=== PATIENT | male | born 1940 | race Caucasian/White ===

== ENCOUNTER → 2017-11-03 08:59 | Outpatient (CLI) | payer MEDICARE, OTHER, SELFPAY ==
[2017-11-03 10:31] LABS: PSA,Total- Diagnostic 0.74 ng/mL (0.0-4.0)
== END ==
PROVIDERS: Family Provider Family Medicine; PCP Family Medicine; Visit Provider Nurse Practitioner Adult Health
DX: C61 Malignant neoplasm of prostate (principal)
CPT/HCPCS: 36415; 84153

== ENCOUNTER → 2021-05-04 05:00 | Outpatient (REF) | payer MEDICARE, OTHER, SELFPAY ==
[2021-05-04 07:31] LABS: INR Fingerstick 1.3; Prothrombin Time Fingerstick 15.4 SEC (11.9-14.4)
== END ==
LOC: OLS.ACH 05:00
PROVIDERS: PCP Family Medicine; Visit Provider Family Medicine
DX: Z79.01 Long term (current) use of anticoagulants (principal)
CPT/HCPCS: 36416; 85610

== ENCOUNTER → 2021-05-07 04:00 | Outpatient (REF) | payer MEDICARE, OTHER, SELFPAY ==
[2021-05-07 07:51] LABS: INR Fingerstick 1.4; Prothrombin Time Fingerstick 16.8 SEC (11.9-14.4)
== END ==
LOC: OLS.ACH 04:00
PROVIDERS: PCP Family Medicine; Visit Provider Family Medicine
DX: Z79.01 Long term (current) use of anticoagulants (principal)
CPT/HCPCS: 36416; 85610

== ENCOUNTER → 2021-05-10 04:00 | Outpatient (REF) | payer MEDICARE, OTHER, SELFPAY ==
[2021-05-10 07:16] LABS: INR Fingerstick 2.1; Prothrombin Time Fingerstick 23.7 SEC (11.9-14.4)
[2021-05-10 08:06] LABS: Prothrombin Time (Protime)PT. 21.7 SECONDS (11.7-14.9)
== END ==
LOC: OLS.ACH 04:00
PROVIDERS: PCP Family Medicine; Visit Provider Family Medicine
DX: Z79.01 Long term (current) use of anticoagulants (principal)
CPT/HCPCS: 36416; 85610

== ENCOUNTER → 2021-08-01 05:00 | Outpatient (REF) | payer MEDICARE, OTHER, SELFPAY ==
[2021-08-01 09:00] LABS: Absolute Neutrophil Count 4.3 X10^3/uL (2.0-7.7); Basophil# 0.08 X10^3/uL; Eosinophil# 0.29 X10^3/uL; Eosinophils% 3.5 % (0-5); Hematocrit 34.6 % (40-54); Hemoglobin 10.8 g/dL (13.0-16.5); Lymphocyte % 29.2 % (19-41); Mean Corp Hgb Conc 31.2 g/dL (32-36); Mean Corpuscular Hgb 27.2 pg (27.0-32.0); Mean Corpuscular Volume 87.2 fL (80-94); Monocyte# 1.06 X10^3/uL; Monocyte% 12.9 % (0-10); NRBC Flagged by Analyzer 0 % (0-5); Neutrophil # 4.34 X10^3/uL (2.7-7.7); Neutrophil % 52.8 % (47-70); Platelet Count 490 K/mm3 (150-450); RBC Distribution Width CV 14.8 % (11.6-14.6); RBC Distribution Width SD 47.3 fl (35.1-43.9); Red Blood Count 3.97 M/mm3 (4.6-6.2); White Blood Count 8.2 K/mm3 (4.4-11.0)
[2021-08-01 09:38] LABS: ALB/GLOB Ratio 0.5 RATIO (0.9-2.4); AST(SGOT) 16 U/L (15-37); Alanine Aminotransfer ALT/SGPT 21 U/L (16-61); Albumin, Serum 2.4 g/dL (3.2-5.0); Alkaline Phosphatase 84 U/L (45-117); Anion Gap 7 (5-15); BUN 15 mg/dL (7-18); BUN/Creat Ratio 17.8 RATIO (10-20); Calcium,Total 9.2 mg/dL (8.5-10.1); Chloride 103 mmol/L (98-107); Creatinine, Serum 0.84 mg/dL (0.70-1.30); EST Glomerular Filtration Rate 93 mL/min (>60); Est Glom Filt Rate - Afr Amer 112 mL/min (>60); Globulin 5.2 g/dL (2.2-4.2); Glucose 87 mg/dL (74-106); Protein, Total 7.6 g/dL (6.4-8.2); Sodium Level 139 mmol/L (136-145); Thyroid Stim Hormone (TSH) 2.38 uIU/mL (0.358-3.74)
== END ==
LOC: OLS.ACH 05:00
PROVIDERS: PCP Family Medicine; Visit Provider Family Medicine
DX: G91.2 (Idiopathic) normal pressure hydrocephalus (principal); R41.0 Disorientation, unspecified
CPT/HCPCS: 36415; 80053; 84443; 85025

== ENCOUNTER → 2021-09-24 04:00 | Outpatient (REF) | payer MEDICARE, OTHER, SELFPAY ==
[2021-09-24 06:25] LABS: Absolute Lymphocyte Count 2.81 X10^3/uL (0.83-4.51); Absolute Neutrophil Count 4.5 X10^3/uL (2.0-7.7); Basophil# 0.07 X10^3/uL; Basophil% 0.8 % (0-1); Eosinophil# 0.37 X10^3/uL; Eosinophils% 4.2 % (0-5); Hematocrit 35.4 % (40-54); Lymphocyte # 2.81 X10^3/ul (0.83-4.51); Lymphocyte % 31.6 % (19-41); Mean Corp Hgb Conc 31.1 g/dL (32-36); Mean Corpuscular Volume 86.8 fL (80-94); Mean Platelet Vol. 9.3 fl (6.2-12.0); Monocyte% 12.4 % (0-10); NRBC Flagged by Analyzer 0 % (0-5); Neutrophil # 4.52 X10^3/uL (2.7-7.7); Neutrophil % 50.7 % (47-70); Platelet Count 389 K/mm3 (150-450); RBC Distribution Width CV 16.5 % (11.6-14.6); RBC Distribution Width SD 52.7 fl (35.1-43.9); Red Blood Count 4.08 M/mm3 (4.6-6.2); White Blood Count 8.9 K/mm3 (4.4-11.0)
[2021-09-24 07:16] LABS: Anion Gap 6 (5-15); BUN 15 mg/dL (7-18); BUN/Creat Ratio 18.4 RATIO (10-20); Calcium,Total 9.1 mg/dL (8.5-10.1); Chloride 103 mmol/L (98-107); Creatinine, Serum 0.82 mg/dL (0.70-1.30); EST Glomerular Filtration Rate 96 mL/min (>60); Est Glom Filt Rate - Afr Amer 116 mL/min (>60); Ferritin 150 ng/mL (26-388); Glucose 83 mg/dL (74-106); Iron 53 ug/dL (65-175); Iron Binding Capacity,Total 259 ug/dL (250-450); Potassium 3.8 mmol/L (3.5-5.1); Sodium Level 138 mmol/L (136-145); Thyroid Stim Hormone (TSH) 1.93 uIU/mL (0.358-3.74)
[2021-09-24 08:50] LABS: Vitamin B12 416 pg/mL (211-911)
== END ==
LOC: OLS.ACH 04:00
PROVIDERS: PCP Family Medicine; Referring Provider Family Medicine; Visit Provider Family Medicine
DX: C61 Malignant neoplasm of prostate (principal); E78.2 Mixed hyperlipidemia; D64.9 Anemia, unspecified; G91.2 (Idiopathic) normal pressure hydrocephalus
CPT/HCPCS: 36415; 80048; 82607; 82728; 83540; 83550; 84443; 85025

== ENCOUNTER → 2021-11-21 | Outpatient (REF) | payer MEDICARE, OTHER, SELFPAY ==
[2021-11-21 07:04] LABS: Absolute Lymphocyte Count 2.62 X10^3/uL (0.83-4.51); Absolute Neutrophil Count 3.4 X10^3/uL (2.0-7.7); Basophil# 0.06 X10^3/uL; Basophil% 0.8 % (0-1); Eosinophils% 3.9 % (0-5); Hematocrit 35.8 % (40-54); Hemoglobin 11.6 g/dL (13.0-16.5); Lymphocyte # 2.62 X10^3/ul (0.83-4.51); Lymphocyte % 34.3 % (19-41); Mean Corp Hgb Conc 32.4 g/dL (32-36); Mean Corpuscular Hgb 28.8 pg (27.0-32.0); Mean Corpuscular Volume 88.8 fL (80-94); Mean Platelet Vol. 9.3 fl (6.2-12.0); Monocyte# 1.19 X10^3/uL; Monocyte% 15.6 % (0-10); NRBC Flagged by Analyzer 0 % (0-5); Neutrophil # 3.44 X10^3/uL (2.7-7.7); Platelet Count 345 K/mm3 (150-450); RBC Distribution Width CV 14.8 % (11.6-14.6); RBC Distribution Width SD 48.5 fl (35.1-43.9); Red Blood Count 4.03 M/mm3 (4.6-6.2); White Blood Count 7.6 K/mm3 (4.4-11.0)
[2021-11-21 07:22] LABS: ALB/GLOB Ratio 0.6 RATIO (0.9-2.4); AST(SGOT) 18 U/L (15-37); Alanine Aminotransfer ALT/SGPT 21 U/L (16-61); Albumin, Serum 2.7 g/dL (3.2-5.0); Alkaline Phosphatase 86 U/L (45-117); Anion Gap 3 (5-15); BUN 14 mg/dL (7-18); BUN/Creat Ratio 15.5 RATIO (10-20); Calcium,Total 8.8 mg/dL (8.5-10.1); Chloride 105 mmol/L (98-107); EST Glomerular Filtration Rate 85 mL/min (>60); Est Glom Filt Rate - Afr Amer 103 mL/min (>60); Globulin 4.4 g/dL (2.2-4.2); Glucose 85 mg/dL (74-106); Potassium 3.9 mmol/L (3.5-5.1); Protein, Total 7.1 g/dL (6.4-8.2); Sodium Level 139 mmol/L (136-145)
== END | disposition home or self-care (01) ==
LOC: OLS.ACH 04:00
PROVIDERS: PCP Family Medicine; Referring Provider Family Medicine; Visit Provider Family Medicine
DX: R60.0 Localized edema (principal)
CPT/HCPCS: 36415; 80053; 85025

== ENCOUNTER → 2022-01-30 | Outpatient (REF) | payer MEDICARE, OTHER, SELFPAY ==
[2022-01-30 07:09] LABS: Mucous, Urine 0 SEEN /hpf (<or=2+)
[2022-01-30 08:08] LABS: Color, Urine Yellow (Yellow); Glucose, Dipstick Normal (Normal); Ketone-Dipstick Negative (Negative); Leukocyte Esterase-Dipstick 500 /ul (Negative); Nitrite-Dipstick Negative (Negative); Occult Blood-Urine 150 /ul (Negative); Protein-Dipstick 15 mg/dl (Negative); Specific Gravity, Urine 1.015 (1.002-1.030); Urine Bilirubin Dipstick Negative (Negative); Urine Clarity Clear (Clear); Urine Urobilinogen Normal (Normal); Urine pH 6.5 (5.0 - 8.0)
[2022-01-30 08:40] LABS: Bacteria 1+ /hpf (None Seen); Red Blood Cells-Urine 5-10 SEEN /hpf (0-5); Squamous Epithelial Cells - UA 5-10 SEEN /hpf (0-5); White Blood Cells 25-50 SEEN /hpf (0-5)
== END | disposition home or self-care (01) ==
LOC: OLS.ACH 00:15
PROVIDERS: PCP Family Medicine; Visit Provider Family Medicine
DX: R45.1 Restlessness and agitation (principal); R46.89 Other symptoms and signs involving appearance and behavior
CPT/HCPCS: 81001; 87077; 87086; 87088; 87186

== ENCOUNTER → 2022-05-10 | Outpatient (REF) | payer MEDICARE, OTHER, SELFPAY ==
[2022-05-10 08:42] LABS: Mucous, Urine 0 SEEN /hpf (<or=2+)
[2022-05-10 09:16] LABS: Color, Urine Straw (Yellow); Glucose, Dipstick Normal (Normal); Ketone-Dipstick Negative (Negative); Leukocyte Esterase-Dipstick 500 /ul (Negative); Nitrite-Dipstick Negative (Negative); Occult Blood-Urine 250 /ul (Negative); Protein-Dipstick 15 mg/dl (Negative); Specific Gravity, Urine 1.005 (1.002-1.030); Urine Bilirubin Dipstick Negative (Negative); Urine Clarity Sl. Cloudy (Clear); Urine Urobilinogen Normal (Normal)
[2022-05-10 09:25] LABS: Bacteria 1+ /hpf (None Seen); Red Blood Cells-Urine 25-50 SEEN /hpf (0-5); Squamous Epithelial Cells - UA 0-5 SEEN /hpf (0-5); White Blood Cells 25-50 SEEN /hpf (0-5)
== END ==
LOC: OLS.ACH 01:30
PROVIDERS: PCP Family Medicine; Visit Provider Family Medicine
DX: N39.0 Urinary tract infection, site not specified (principal)
CPT/HCPCS: 81001; 87086; 87088; 87186

== ENCOUNTER → 2022-06-03 | Outpatient (REF) | payer MEDICARE, OTHER, SELFPAY | LOC: OLS.ACH 04:00 | PROVIDERS: PCP Family Medicine; Visit Provider Family Medicine | DX: N39.0 Urinary tract infection, site not specified (principal) | CPT/HCPCS: 87086; 87088; 87186 ==

== ENCOUNTER → 2022-06-26 | Outpatient (REF) | payer MEDICARE, OTHER, SELFPAY ==
[2022-06-26 07:32] LABS: Bacteria 0 SEEN /hpf (None Seen); Mucous, Urine 0 SEEN /hpf (<or=2+); Red Blood Cells-Urine 0 SEEN /hpf (0-5); Squamous Epithelial Cells - UA 0 SEEN /hpf (0-5); White Blood Cells 0 SEEN /hpf (0-5)
[2022-06-26 08:36] LABS: Color, Urine Straw (Yellow); Glucose, Dipstick Normal (Normal); Ketone-Dipstick Negative (Negative); Leukocyte Esterase-Dipstick Negative /ul (Negative); Nitrite-Dipstick Negative (Negative); Occult Blood-Urine Negative /ul (Negative); Protein-Dipstick Negative (Negative); Urine Bilirubin Dipstick Negative (Negative); Urine Clarity Clear (Clear); Urine Urobilinogen Normal (Normal)
== END ==
LOC: OLS.ACH 07:31
PROVIDERS: PCP Family Medicine; Referring Provider Family Medicine; Visit Provider Family Medicine
DX: N39.0 Urinary tract infection, site not specified (principal)
CPT/HCPCS: 81001; 87086; 87088

== ENCOUNTER → 2022-08-28 | Outpatient (REF) | payer MEDICARE, OTHER, SELFPAY ==
[2022-08-28 09:33] LABS: Absolute Lymphocyte Count 2.08 X10^3/uL (0.83-4.51); Absolute Neutrophil Count 7.4 X10^3/uL (2.0-7.7); Basophil# 0.06 X10^3/uL; Basophil% 0.5 % (0-1); Eosinophils% 2.7 % (0-5); Hematocrit 30.8 % (40-54); Hemoglobin 10.1 g/dL (13.0-16.5); Lymphocyte # 2.08 X10^3/ul (0.83-4.51); Lymphocyte % 18.6 % (19-41); Mean Corp Hgb Conc 32.8 g/dL (32-36); Mean Corpuscular Hgb 31.1 pg (27.0-32.0); Mean Corpuscular Volume 94.8 fL (80-94); Mean Platelet Vol. 9.9 fl (6.2-12.0); Monocyte# 1.27 X10^3/uL; Monocyte% 11.4 % (0-10); NRBC Flagged by Analyzer 0 % (0-5); Neutrophil # 7.35 X10^3/uL (2.7-7.7); Neutrophil % 65.8 % (47-70); Platelet Count 373 K/mm3 (150-450); RBC Distribution Width CV 12.8 % (11.6-14.6); RBC Distribution Width SD 44.3 fl (35.1-43.9); Red Blood Count 3.25 M/mm3 (4.6-6.2); White Blood Count 11.2 K/mm3 (4.4-11.0)
[2022-08-28 09:59] LABS: ALB/GLOB Ratio 0.6 RATIO (0.9-2.4); AST(SGOT) 11 U/L (15-37); Alanine Aminotransfer ALT/SGPT 16 U/L (16-61); Albumin, Serum 2.8 g/dL (3.2-5.0); Alkaline Phosphatase 85 U/L (45-117); Anion Gap 10 (5-15); BUN 83 mg/dL (7-18); BUN/Creat Ratio 12.9 RATIO (10-20); Calcium,Total 8.7 mg/dL (8.5-10.1); Chloride 105 mmol/L (98-107); Cholesterol 117 mg/dL (200); Creatinine, Serum 6.43 mg/dL (0.70-1.30); EST Glomerular Filtration Rate 9 mL/min (>60); Est Glom Filt Rate - Afr Amer 11 mL/min (>60); Globulin 4.6 g/dL (2.2-4.2); Glucose 83 mg/dL (74-106); High Density Lipoprotein 38 mg/dL; Potassium 4.6 mmol/L (3.5-5.1); Protein, Total 7.4 g/dL (6.4-8.2); Sodium Level 137 mmol/L (136-145); Thyroid Stim Hormone (TSH) 2.47 uIU/mL (0.358-3.74); Triglycerides 88 mg/dL; Very Low Density Lipoprotein 18 mg/dL (5-40)
== END ==
LOC: OLS.ACH 05:00
PROVIDERS: PCP Family Medicine; Visit Provider Family Medicine
DX: G91.2 (Idiopathic) normal pressure hydrocephalus (principal); E78.2 Mixed hyperlipidemia; D64.9 Anemia, unspecified; R25.1 Tremor, unspecified
CPT/HCPCS: 36415; 80053; 80061; 84443; 85025

== ENCOUNTER → 2022-09-03 | Outpatient (REF) | payer MEDICARE, OTHER, SELFPAY ==
[2022-09-03 12:48] LABS: Anion Gap 9 (5-15); BUN 95 mg/dL (7-18); BUN/Creat Ratio 11.7 RATIO (10-20); Calcium,Total 8.7 mg/dL (8.5-10.1); Chloride 107 mmol/L (98-107); Creatinine, Serum 8.11 mg/dL (0.70-1.30); EST Glomerular Filtration Rate 7 mL/min (>60); Est Glom Filt Rate - Afr Amer 8 mL/min (>60); Glucose 101 mg/dL (74-106); Potassium 5.1 mmol/L (3.5-5.1); Sodium Level 138 mmol/L (136-145)
== END ==
LOC: OLS.ACH 11:30
PROVIDERS: PCP Family Medicine; Visit Provider Family Medicine
DX: N39.0 Urinary tract infection, site not specified (principal)
CPT/HCPCS: 36415; 80048

== ENCOUNTER → 2022-09-04 | Outpatient (REF) | payer MEDICARE, OTHER, SELFPAY ==
[2022-09-04 08:25] LABS: Anion Gap 8 (5-15); BUN 96 mg/dL (7-18); BUN/Creat Ratio 11.5 RATIO (10-20); Calcium,Total 8.8 mg/dL (8.5-10.1); Chloride 113 mmol/L (98-107); Creatinine, Serum 8.38 mg/dL (0.70-1.30); EST Glomerular Filtration Rate 7 mL/min (>60); Est Glom Filt Rate - Afr Amer 8 mL/min (>60); Glucose 88 mg/dL (74-106); Potassium 5.3 mmol/L (3.5-5.1); Sodium Level 141 mmol/L (136-145)
== END ==
LOC: OLS.ACH 05:00
PROVIDERS: PCP Family Medicine; Visit Provider Family Medicine
DX: I73.89 Other specified peripheral vascular diseases (principal); N39.0 Urinary tract infection, site not specified; D64.9 Anemia, unspecified
CPT/HCPCS: 36415; 80048

== ENCOUNTER → 2022-09-05 | Outpatient (REF) | payer MEDICARE, OTHER, SELFPAY ==
[2022-09-05 10:16] LABS: Anion Gap 9 (5-15); BUN 92 mg/dL (7-18); BUN/Creat Ratio 10.8 RATIO (10-20); Calcium,Total 8.7 mg/dL (8.5-10.1); Chloride 114 mmol/L (98-107); Creatinine, Serum 8.54 mg/dL (0.70-1.30); EST Glomerular Filtration Rate 6 mL/min (>60); Est Glom Filt Rate - Afr Amer 8 mL/min (>60); Glucose 92 mg/dL (74-106); Potassium 5.5 mmol/L (3.5-5.1); Sodium Level 142 mmol/L (136-145)
== END ==
LOC: OLS.ACH 07:55
PROVIDERS: PCP Family Medicine; Visit Provider Family Medicine
DX: I73.89 Other specified peripheral vascular diseases (principal); N39.0 Urinary tract infection, site not specified; D64.9 Anemia, unspecified
CPT/HCPCS: 36415; 80048

== ENCOUNTER → 2022-09-06 | Outpatient (REF) | payer MEDICARE, OTHER, SELFPAY ==
[2022-09-06 09:33] LABS: Anion Gap 6 (5-15); BUN 95 mg/dL (7-18); BUN/Creat Ratio 10.6 RATIO (10-20); Calcium,Total 8.9 mg/dL (8.5-10.1); Chloride 118 mmol/L (98-107); Creatinine, Serum 8.94 mg/dL (0.70-1.30); EST Glomerular Filtration Rate 6 mL/min (>60); Est Glom Filt Rate - Afr Amer 7 mL/min (>60); Glucose 92 mg/dL (74-106); Potassium 5.9 mmol/L (3.5-5.1); Sodium Level 142 mmol/L (136-145)
== END ==
LOC: OLS.ACH 05:40
PROVIDERS: PCP Family Medicine; Visit Provider Family Medicine
DX: I73.89 Other specified peripheral vascular diseases (principal); N39.0 Urinary tract infection, site not specified; D64.9 Anemia, unspecified
CPT/HCPCS: 36415; 80048

== ENCOUNTER → 2022-09-07 | Outpatient (REF) | payer MEDICARE, SELFPAY ==
[2022-09-07 09:21] LABS: Anion Gap 8 (5-15); BUN 93 mg/dL (7-18); BUN/Creat Ratio 10.4 RATIO (10-20); Calcium,Total 9.1 mg/dL (8.5-10.1); Chloride 118 mmol/L (98-107); Creatinine, Serum 8.95 mg/dL (0.70-1.30); EST Glomerular Filtration Rate 6 mL/min (>60); Est Glom Filt Rate - Afr Amer 7 mL/min (>60); Glucose 100 mg/dL (74-106); Potassium 5.7 mmol/L (3.5-5.1); Sodium Level 143 mmol/L (136-145)
== END ==
LOC: OLS.ACH 07:55
PROVIDERS: PCP Family Medicine; Referring Provider Family Medicine; Visit Provider Family Medicine
DX: I73.89 Other specified peripheral vascular diseases (principal); N39.0 Urinary tract infection, site not specified; D64.9 Anemia, unspecified
CPT/HCPCS: 36415; 80048